=== PATIENT | male | born 1940 | race Caucasian/White ===

== ENCOUNTER 2017-06-20 06:06 | Day surgery (SDC) | payer OTHER ==
[2017-06-19 12:04] LABS: Basophils # (auto) 0.1 uL; Basophils % (auto) 0.7 % (0.0-2.0); Eosinophils # (auto) 0.2 uL; Eosinophils % (auto) 2.3 % (0.0-7.0); Hematocrit 39.8 % (41.0-53.0); Hemoglobin 12.8 g/dL (13.5-17.5); Lymphocytes # (auto) 0.9 uL; Lymphocytes % (auto) 11.5 % (10.0-50.0); Mean Corpuscular Hemoglobin 29.5 pg (28.0-32.0); Mean Corpuscular Hgb Conc. 32.2 g/dL (32.0-36.0); Mean Corpuscular Volume 91.4 fL (80.0-100.0); Monocytes # (auto) 0.6 uL; Monocytes % (auto) 7.2 % (0.0-12.0); Neutrophils # (auto) 6.2 uL; Neutrophils % (auto) 78.3 % (37.0-80.0); Nucleated Red Blood Cells % 0.1 %; Platelet Count (auto) 213 10^3/uL (140-450); Red Cell Distribution Width 15.4 % (11.8-14.3); White Blood Cell 7.9 10^3/uL (4.4-10.8)
[2017-06-19 12:14] LABS: Urine Bilirubin Negative (Negative); Urine Blood 1+ /uL (Negative); Urine Color Yellow (Yellow); Urine Glucose Normal (Normal); Urine Ketone Negative (Negative); Urine Mucus FEW (None Seen); Urine Nitrite Negative (Negative); Urine RBC 10 /hpf (0 - 3); Urine Squamous Epithelial Cell FEW /hpf (<5); Urine Urobilinogen Normal (Negative); Urine pH 5.5 (5.0-8.0)
[2017-06-19 12:23] LABS: INR 1.06 (0.9-1.15); Partial Thromboplastin Time 31.9 sec (22.64-33.71); Prothrombin Time 11.6 sec (9.37-12.3)
[2017-06-19 12:52] LABS: BUN/Creatinine Ratio 23.6; Calcium 8.6 mg/dL (8.5-10.1); Potassium 3.9 mmol/L (3.5-5.1)
[~2017-06-20] VITALS: Ht 180.3 cm; Wt 83.9 kg
[~2017-06-20 06:06] MED LIST: AMLO5TAB2 PO; GLIP-115 PO; SITA100T7 PO; TAM04C PO
[2017-06-20] MEDS ORDERED: ceFAZolin 1GM/50ML D5W 50 ML IV ONE (06:30)
[2017-06-20] MEDS ORDERED: LIDOCAINE 2% JELLY 11ml (GLYDO) ONE (07:09)
[2017-06-20] MEDS ORDERED: PROPOFOL 10 MG/ML 20 ML IV ONE (07:36)
[2017-06-20] MEDS ORDERED: fentaNYL CITRATE 100 MCG/2 ML VL ONE (07:53)
[2017-06-20] MEDS ORDERED: METOCLOPRAMIDE HCL 5MG/ml INJ 2ml VIAL ONE (08:11)
[2017-06-20] MEDS ORDERED: ONDANSETRON HCL 4 MG/2 ML VIAL ONE (08:11)
[2017-06-20] MEDS ORDERED: ACCU-CHEK COMFORT CURVE STRIP VI ONE (08:15)
[2017-06-20] MEDS ORDERED: ONDANSETRON HCL 4 MG/2 ML VIAL IV ONE (08:15)
[2017-06-20] MEDS ORDERED: fentaNYL CITRATE 100 MCG/2 ML VL IV PRN (08:15)
[2017-06-20] MEDS ORDERED: HYDROmorphone HCL 2 MG/ML VL IV PRN (08:15)
[2017-06-20] MEDS ORDERED: hydrALAZINE HCL 20 MG/ML VL IV PRN (08:15)
[2017-06-20] MEDS ORDERED: ceFAZolin 1GM VL ONE (08:19)
[2017-06-20] MEDS ORDERED: BELLADONNA ALKAL/OPIUM (16.2/30MG) RECT SUPP PR ONE (08:45)
[2017-06-20 09:30] VITALS: BP 166/5
== END 2017-06-20 09:55 | disposition home or self-care (01) ==
LOC: SUR 06:06
PROVIDERS: ATTEND Urology
DX: N40.1 Benign prostatic hyperplasia with lower urinary tract symptoms (principal); J45.909 Unspecified asthma, uncomplicated; E11.22 Type 2 diabetes mellitus with diabetic chronic kidney disease; I12.9 Hypertensive chronic kidney disease with stage 1 through stage 4 chronic kidney disease, or unspecified chronic kidney disease; N18.2 Chronic kidney disease, stage 2 (mild)
CPT/HCPCS: 36415; 52601; 80048; 81001; 85025; 85610; 85730; 87086; 87088; 87186; 88305; J0690; J2405; J2704; J2765; J3010

== ENCOUNTER 2024-11-02 12:23 | Inpatient (IN) | payer OTHER ==
[~2024-11-02] VITALS: Ht 172.7 cm; Wt 86.0 kg
[~2024-11-02 12:23] MED LIST changes: +AMLO1TAB22 PO; -AMLO5TAB2 PO; -GLIP-115 PO; +GLIP5TAB21 PO; -TAM04C PO; +TAMS-35 PO
[2024-11-02 12:31] VITALS: PULSE 69; RESP 16; O2SAT 98
--- NOTE | 2024-11-02 13:18 | ED.PDOC ---
History of Present Illness HPI Comments 84 y/o M, presents to the ED for CC of abnormal labs. Patient states, that he was seen at his PCP and was relayed to the ED for a further evaluation due to abnormal labs. Patient's labs report BUN at 99 and creatine at 6.06. Patient denies social history. Patient denies any current dysuria, hematuria, fever, chills, or N/V/D. No new symptoms or modifying factors at this time. Chief Complaint: Abnormal LAB's Time Seen by MD: 12:30 Reviewed Notes: Nurses Notes, Medications, Allergies Allergies: Coded Allergies: Pioglitazone (Verified Allergy, Unknown, 06/19/17) Home Meds Reported Medications Glipizide (Glipizide) 5 Mg Tab, 5 MG PO BID for 30 Days, MG 06/19/17 Sitagliptin Phosphate (Januvia) 100 Mg Tab, 1 TAB PO DAILY, #30 TAB 5 Refills 06/19/17 Amlodipine Besylate (Amlodipine Besylate) 5 Mg Tab, 5 MG PO HS for 30 Days, MG 06/19/17 Tamsulosin Hcl (Flomax) 0.4 Mg Cap, 1 CAP PO DAILY, #30 CAP 11 Refills 06/19/17 Information Source: Patient, Friend Mode of Arrival: Ambulatory Severity: Mild Timing: Days Duration: Since onset Prehospital treatment: None Past Medical History PAST MEDICAL HISTORY: Asthma, DM, HTN Surgical History (Other): 2 & 3 left ft digits, cataracts Family History Family History: Family hx of Cancer, Family hx of heart lion Social History Smoker: Non-Smoker Alcohol: Denies ETOH Use Drugs: Denies Drug Use Lives In: Home Constitutional: reports: weakness; denies: chills, diaphoresis, fatigue, fever, malaise, sweats, others EENTM: denies: blurred vision, double vision, ear bleeding, ear discharge, ear drainage, ear pain, ear ringing, eye pain, eye redness, hearing loss, mouth pain, mouth swelling, nasal discharge, nose bleeding, nose congestion, nose pain, photophobia, tearing, throat pain, throat swelling, voice changes, others Respiratory: denies: cough, hemoptysis, orthopnea, SOB at rest, shortness of breath, SOB with excertion, stridor, wheezing, others Cardiovascular: denies: chest pain, dizzy spells, diaphoresis, Dyspnea on exertion, edema, irregular heart beat, left arm pain, lightheadedness, palpitations, PND, syncope, others Gastrointestinal: denies: abdomen distended, abdominal pain, blood streaked bowels, constipated, diarrhea, dysphagia, difficulty swallowing, hematemesis, me jerome, nausea, poor appetite, poor fluid intake, rectal bleeding, rectal pain, vomiting, others Genitourinary: denies: burning, dysuria, flank pain, frequency, hematuria, incontinence, penile discharge, penile sore, pain, testicle pain, testicle swelling, urgency, others Neurological: denies: dizziness, fainting, headache, left sided numbness, left sided weakness, numbness, paresthesia, pre-existing deficit, right sided numbness, right sided weakness, seizure, speech problems, tingling, tremors, weakness, others Musculoskeletal: denies: back pain, gout, joint pain, joint swelling, muscle pain, muscle stiffness, neck pain, others Integumetry: denies: bruises, change in color, change in hair/nails, dryness, laceration, lesions, lumps, rash, wounds, others Allergic/Immunocompromised: denies: Difficulty Healing, Frequent Infections, Hives, Itching, others Hematologic/Lymphatic: denies: anemia, blood clots, easy bleeding, easy bruising, swollen glands, others Endocrine: denies: excessive hunger, excessive sweating, excessive thirst, excessive urination, flushing, intolerance to cold, intolerance to heat, unexplained weight gain, unexplained weight loss, others Psychiatric: denies: anxiety, bipolar disorder, depression, hopeless, panic disorder, schizophrenia, sleepless, suicidal, others All Other Systems: Reviewed and Negative Physical Exam General Appearance: Moderate Distress HEENT: Pale Conjuntivae (L), Pale Conjuntivae (R), Pharynx Normal, TMs Normal Neck: Full Range of Motion, Non-Tender, Normal, Normal Inspection Respiratory: Chest Non-Tender, Lungs Clear, No Accessory Muscle Use, No Respiratory Distress, Normal Breath Sounds Cardiovascular: No Edema, No JVD, No Murmur, No Gallop, Normal Peripheral Pulses, Regular Rate/Rhythm Breast Exam: Deferred Gastrointestinal: No Organomegaly, Non Tender, No Pulsatile Mass, Normal Bowel Sounds, Soft Genitalia: Deferred Pelvic: Deferred Rectal: Deferred Extremities: No calf tenderness, Normal capillary refill, Pedal edema Musculoskeletal : Apperance: Normal Neurologic: Alert, central stores attendant II-XII nml as Tested, No Motor Deficits, Normal Affect, Normal Mood, No Sensory Deficits Cerebellar Function: Normal Reflexes: Normal Skin: Dry, Normal Color, Warm Lymphatic: No Adenopathy Was a procedure done? Was a procedure done?: No Differential Dx Considerations may include: Generalized weakness, electrolyte imbalance, dehydration, acute renal failure X-Ray, Labs, Meds, VS Vital Signs Date Time Temp Pulse Resp B/P (MAP) Pulse Ox O2 Delivery O2 Flow Rate FiO2 11/02/24 12:31 98.6 69 16 125/31 (62) 98 11/02/24 12:31 98.6 69 16 125/31 (62) 98 98.6 11/02/24 12:31 69 16 98 Room Air* 0 21 Lab Test 11/02/24 13:26 Range/Units White Blood Count 8.4 4.4-10.8 10^3/uL Red Blood Count 3.41 L 4.5-5.90 10^6/uL Hemoglobin 10.6 L 13.5-17.5 g/dL Hematocrit 32.8 L 41.0-53.0 % Mean Corpuscular Volume 96.2 80.0-100.0 fL Mean Corpuscular Hemoglobin 31.2 28.0-32.0 pg Mean Corpuscular Hemoglobin Concent 32.4 32.0-36.0 g/dL Red Cell Distribution Width 14.8 H 11.8-14.3 % Platelet Count 211 140-450 10^3/uL Mean Platelet Volume 9.1 6.9-10.8 fL Neutrophils (%) (Auto) 77.1 37.0-80.0 % Lymphocytes (%) (Auto) 11.4 10.0-50.0 % Monocytes (%) (Auto) 6.7 0.0-12.0 % Eosinophils (%) (Auto) 3.7 0.0-7.0 % Basophils (%) (Auto) 1.1 0.0-2.0 % Neutrophils # (Auto) 6.5 1.6-8.6 10 ^3/uL Lymphocytes # (Auto) 1.0 0.4-5.4 10 ^3/uL Monocytes # (Auto) 0.6 0-1.3 10 ^3/uL Eosinophils # (Auto) 0.3 0-0.8 10 ^3/uL Basophils # (Auto) 0.1 0-0.2 10 ^3/uL Nucleated Red Blood Cells 0.0 % Prothrombin Time 11.2 9.3-11.8 sec Prothrombin Time INR 1.06 0.9-1.15 Activated Partial Thromboplast Time 29.0 24.5-34.5 SEC Sodium Level 142 136-145 mmol/L Potassium Level 4.0 3.5-5.1 mmol/L Chloride Level 109 H 98-107 mmol/L Carbon Dioxide Level 23 20-31 mmol/L Anion Gap 10 5-15 Blood Urea Nitrogen 78 H 9-23 mg/dL Creatinine 5.13 H 0.700-1.30 mg/dL Glomerular Filtration Rate Calc 10 >90 mL/min BUN/Creatinine Ratio 15.2 10.0-20.0 Serum Glucose 85 74-106 mg/dL Calcium Level 9.0 8.7-10.4 mg/dL Chest x-ray is negative. The patient's CBC shows anemia with a hemoglobin of 10.6 and hematocrit of 32.8 The chemistry panel shows a BUN of 78 the creatinine of 5.13 The patient was sent to the emergency department's by the quill winder The patient was being admitted to the hospitalist A nephrology consult is being obtained The patient was diagnosis is acute renal failure. Images Reviewed?: Images reviewed and evaluated by me Time of 1ST Reevaluation: 14:39 Reevaluation 1ST: Unchanged Patient Education/Counseling: Diagnosis, Treatment, Prognosis Family Education/Counseling: Diagnosis, Treatment, Prognosis Departure 1 Departure Time of Disposition: 14:47 Impression: Primary Impression: Acute renal failure Qualified Codes: N17.1 - Acute kidney failure with acute cortical necrosis Disposition: ADMITTED INPATIENT Admit to: Tele Condition: Fair Critical Care Note Critical Care Time?: No Stability Stability form required: Yes Unstable for transfer: Telemetry monitoring (Telemetry monitoring required), ED Physician Assesment (Clinical assesment) Heart Score Heart Score: Heart Score Response (Comments) Value History N/A 0 EKG N/A 0 Age N/A 0 Risk Factors N/A 0 Troponin N/A 0 Total 0 I personally scribed for MIGUE BOBBY MD ([email or web address]) on 11/02/24 at 13:18. El ectronically submitted by Beatriz Gonzalez [email or web address]). MIGUE BOBBY MD Nov 02, 2024 13:18
--- NOTE | 2024-11-02 13:28 | DVH ---
CHEST RADIOGRAPH Indication: weakness Technique: Frontal and lateral view of the chest was obtained Comparison: None FINDINGS: Lines and Tubes: None Lungs: Clear Pleura: No effusion. No pneumothorax. Cardiomediastinal contours: Unremarkable Bones: Unremarkable IMPRESSION: No evidence of acute disease.
[2024-11-02 13:45] LABS: Basophils # (auto) 0.1 10 ^3/uL (0-0.2); Basophils % (auto) 1.1 % (0.0-2.0); Eosinophils # (auto) 0.3 10 ^3/uL (0-0.8); Eosinophils % (auto) 3.7 % (0.0-7.0); Hematocrit 32.8 % (41.0-53.0); Hemoglobin 10.6 g/dL (13.5-17.5); Lymphocytes % (auto) 11.4 % (10.0-50.0); Mean Corpuscular Hemoglobin 31.2 pg (28.0-32.0); Mean Corpuscular Hgb Conc. 32.4 g/dL (32.0-36.0); Mean Corpuscular Volume 96.2 fL (80.0-100.0); Monocytes # (auto) 0.6 10 ^3/uL (0-1.3); Monocytes % (auto) 6.7 % (0.0-12.0); Neutrophils # (auto) 6.5 10 ^3/uL (1.6-8.6); Neutrophils % (auto) 77.1 % (37.0-80.0); Platelet Count (auto) 211 10^3/uL (140-450); Red Blood Cells 3.41 10^6/uL (4.5-5.90); Red Cell Distribution Width 14.8 % (11.8-14.3); White Blood Cell 8.4 10^3/uL (4.4-10.8)
[2024-11-02 13:58] LABS: INR 1.06 (0.9-1.15); Prothrombin Time 11.2 sec (9.3-11.8)
[2024-11-02 14:00] LABS: Sodium 142 mmol/L (136-145)
[2024-11-02 14:01] LABS: Anion Gap 10 (5-15); Carbon Dioxide 23 mmol/L (20-31)
[2024-11-02 14:06] LABS: BUN/Creatinine Ratio 15.2 (10.0-20.0); Glucose 85 mg/dL (74-106)
[2024-11-02 14:09] LABS: Blood Urea Nitrogen 78 mg/dL (9-23); Chloride 109 mmol/L (98-107)
--- NOTE | 2024-11-02 15:59 | ECG ---
[facility] Test Date: 2024-11-02 Test Time: 15:57:07 Pat Name: SELVIN NICHOLE Department: ER Room: 0296T Gender: M Doffer: JENN : 1940 Requested By: MIGUE BOBBY Order Number: [id number] Reading MD: Sukhi Sweeney Measurements Intervals [place] Rate: 63 P: 53 MD: 267 QRS: 36 QRSD: 122 T: 85 QT: 515 QTc: 528 Interpretive Statements Sinus rhythm Prolonged MD interval IVCD, consider atypical RBBB Nonspecific T abnormalities, lateral leads Electronically Signed On 11-04-2024 11:57:45 PST by Sukhi Sweeney Please click the below link to view image of tracing.
--- NOTE | 2024-11-02 17:09 | DVHINCON2 ---
Date of service: Nov 02, [address] King Reason for Consultation CKD stage 5 to start HD History of Present Illness Patient is 84 y/o male with PMH of DM, HTN, Anemia, CKD stage 5 and PAD is referred by Dr. Diaz to start HD Past Medical History PAST MEDICAL HISTORY: Asthma, DM, HTN, CKD, PAD Past Surgical History Surgical History (Other): 2 & 3 left ft digits, cataracts Allergies: Coded Allergies: Pioglitazone (Verified Allergy, Unknown, 06/19/17) Home Meds Reported Medications Glipizide (Glipizide) 5 Mg Tab, 5 MG PO BID for 30 Days, MG 06/19/17 Sitagliptin Phosphate (Januvia) 100 Mg Tab, 1 TAB PO DAILY, #30 TAB 5 Refills 06/19/17 Amlodipine Besylate (Amlodipine Besylate) 5 Mg Tab, 5 MG PO HS for 30 Days, MG 06/19/17 Tamsulosin Hcl (Flomax) 0.4 Mg Cap, 1 CAP PO DAILY, #30 CAP 11 Refills 06/19/17 Current Medications Current Medications Medications (Trade) Dose Ordered Sig/Dante Route PRN Reason Start Time Stop Time Status Last Admin Docusate Sodium (Colace Capsule) 100 mg BIDPRN PRN PO FOR CONSTIPATION 11/02/24 20:45 Acetaminophen (Tylenol Tablet) 650 mg Q6HP PRN PO PAIN SCALE 1-3 OR TEMP>100.4 11/02/24 20:45 Acetaminophen/ Hydrocodone Bitart ([place] 5/325MG Tab) 1 tab Q6HPRN PRN PO MODERATE PAIN (4-6 PAIN SCALE) 11/02/24 20:45 Ondansetron HCl (Zofran) 4 mg Q4HP PRN IV NAUSEA / VOMITING 11/02/24 20:45 Nitroglycerin (Ntrostat Sublingual) 0.4 mg Q5MINP PRN SL FOR CHEST PAIN 11/02/24 20:45 Morphine Sulfate 2 mg Q30M PRN IV FOR CHEST PAIN 11/02/24 20:45 Diagnostic Test (Pha) (Accu-Chek Comfort Curve T) 1 strip ACHS 11/02/24 22:00 11/03/24 11:23 DC 11/03/24 07:34 Insulin Human Regular (InsuLIN R) HS SC 11/02/24 22:00 11/03/24 11:24 DC Insulin Human Regular (InsuLIN R) AC SC 11/03/24 07:00 11/03/24 11:24 DC Dextrose 50 ml UD PRN IV Blood Sugar LESS THAN 60 11/02/24 20:45 11/03/24 11:24 DC Amlodipine Besylate (Norvasc Tablet) 5 mg DAILY PO 11/04/24 10:00 Diagnostic Test (Pha) (Accu-Chek Comfort Curve T) 1 strip Q6HR 11/03/24 12:00 Insulin Human Regular (InsuLIN R) Q6HR SC 11/03/24 12:00 11/03/24 11:52 Dextrose 50 ml UD PRN IV Blood Sugar LESS THAN 60 11/03/24 11:15 Review of Systems All 12 item review of systems reviewed with the patient nonsignificant except what is mentioned in the history of present illness H&P Exam Vital Signs/I&O Vital Sign Date Time Temp Pulse Resp B/P (MAP) Pulse Ox O2 Delivery O2 Flow Rate FiO2 11/03/24 11:45 170/56 11/03/24 08:42 98.0 77 16 98 98.0 11/03/24 03:21 Room Air* 0 21 Intake and Output 11/02/24 11/03/24 19:00 07:00 Intake Total 0 ml Balance 0 ml Intake Oral 0 ml Physical Exam Patient is awake alert Lungs clear to auscultation bilaterally Cardiac exam regular rate and rhythm GI soft nontender bowel sounds are present normal Extremities no clubbing cyanosis or edema Neuro nonfocal Labs/Diagnostic Data Labs/Diagnostic Data Laboratory Tests Test 11/03/24 07:00 11/03/24 06:02 11/03/24 01:45 11/02/24 13:26 Range/Units White Blood Count 8.3 8.4 4.4-10.8 10^3/uL Red Blood Count 3.43 L 3.41 L 4.5-5.90 10^6/uL Hemoglobin 10.8 L 10.6 L 13.5-17.5 g/dL Hematocrit 33.1 L 32.8 L 41.0-53.0 % Mean Corpuscular Volume 96.6 96.2 80.0-100.0 fL Mean Corpuscular Hemoglobin 31.6 31.2 28.0-32.0 pg Mean Corpuscular Hemoglobin Concent 32.7 32.4 32.0-36.0 g/dL Red Cell Distribution Width 14.8 H 14.8 H 11.8-14.3 % Platelet Count 201 211 140-450 10^3/uL Mean Platelet Volume 9.3 9.1 6.9-10.8 fL Neutrophils (%) (Auto) 74.9 77.1 37.0-80.0 % Lymphocytes (%) (Auto) 12.2 11.4 10.0-50.0 % Monocytes (%) (Auto) 6.3 6.7 0.0-12.0 % Eosinophils (%) (Auto) 6.0 3.7 0.0-7.0 % Basophils (%) (Auto) 0.6 1.1 0.0-2.0 % Neutrophils # (Auto) 6.2 6.5 1.6-8.6 10 ^3/uL Lymphocytes # (Auto) 1.0 1.0 0.4-5.4 10 ^3/uL Monocytes # (Auto) 0.5 0.6 0-1.3 10 ^3/uL Eosinophils # (Auto) 0.5 0.3 0-0.8 10 ^3/uL Basophils # (Auto) 0 0.1 0-0.2 10 ^3/uL Nucleated Red Blood Cells 0.0 0.0 % Sodium Level 143 142 136-145 mmol/L Potassium Level 3.8 4.0 3.5-5.1 mmol/L Chloride Level 111 H 109 H 98-107 mmol/L Carbon Dioxide Level 20 23 20-31 mmol/L Anion Gap 12 10 5-15 Blood Urea Nitrogen 76 H 78 H 9-23 mg/dL Creatinine 5.36 H 5.13 H 0.700-1.30 mg/dL Glomerular Filtration Rate Calc 10 10 >90 mL/min BUN/Creatinine Ratio 14.2 15.2 10.0-20.0 Serum Glucose 90 85 74-106 mg/dL Calcium Level 9.3 9.0 8.7-10.4 mg/dL POC Glucose 85 184 H 70-106 mg/dl Prothrombin Time 11.2 9.3-11.8 sec Prothrombin Time INR 1.06 0.9-1.15 Activated Partial Thromboplast Time 29.0 24.5-34.5 SEC Phosphorus Level 5.5 H 2.4-5.1 mg/dL Magnesium Level 2.2 1.6-2.6 mg/dL Parathyroid Hormone (Intact) 432.2 H 18.4-80.1 pg/mL Assessment 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 I discussed my plan of care with the patient and primary nurse at the bedside I would like to thank Dr. King for the consult, will follow up Plan discussed with: Patient LUCRETIA CRAMER MD Nov 02, 2024 17:09
[2024-11-02 18:57] LABS: Magnesium 2.2 mg/dL (1.6-2.6)
[2024-11-02 19:00] LABS: Phosphorus 5.5 mg/dL (2.4-5.1)
[2024-11-02] MEDS ORDERED: HYDROcodone-ACET 5/325MG TAB PO PRN (20:45)
[2024-11-02] MEDS ORDERED: NITROGLYCERIN 0.4 MG SL TAB SL PRN (20:45)
[2024-11-02] MEDS ORDERED: DOCUSATE SOD 100 MG CAP PO PRN (20:45)
[2024-11-02] MEDS ORDERED: DEXTROSE (50%) 50ML SYRG IV PRN (20:45)
[2024-11-02] MEDS ORDERED: ONDANSETRON HCL 4 MG/2 ML VIAL IV PRN (20:45)
[2024-11-02] MEDS ORDERED: ACETAMINOPHEN 325 MG TAB PO PRN (20:45)
[2024-11-02] MEDS ORDERED: MORPHINE SULFATE INJ 2 MG/ml SYRG IV PRN (20:45)
[2024-11-02] MEDS: InsuLIN REG 1unit/0.01ml Soln (100units/ml) SC SCH (22:00)
[2024-11-02] MEDS: ACCU-CHEK COMFORT CURVE STRIP VI SCH (22:00)
--- NOTE | 2024-11-03 02:28 | DVHHP2 ---
LEXI IDAZ BLASTING MACHINE OPERATOR 11/03/24 0228: History of Present Illness Reason for Visit: Tunnel catheter placement for HD History of Present Illness 84-year-old male with path medical history of CKD, DM, hypertension, PAT presents After being sent in by his panel monitor for tunnel catheter placement for HD. At this time patient denies fevers, chills, shortness of breath, chest pain, Nausea vomiting. Cardiovascular: HTN Renal/: Chronic renal insuff Endocrine: Diabetes Review of Systems Constitutional: No: Fever, Chills, Sweats, Weakness, Malaise, Other Eyes: No: Pain, Vision change, Conjunctivae inflammation, Eyelid inflammation, Other, Redness ENT: No: Ear pain, Ear discharge, Nose pain, Nose discharge, Nose congestion, Mouth pain, Mouth swelling, Throat pain, Throat swelling, Other Respiratory: No: Cough, Dry, Shortness of breath, SOB with excertion, Wheezing, Hemoptysis, Pleuritic Pain, Sputum, Wheezing, Other Cardiovascular: No: Chest Pain, Palpitations, Orthopnea, Paroxysmal Noc. Dyspnea, Edema, Lt Headedness, Other Gastrointestinal: No: Nausea, Vomiting, Abdominal Pain, Diarrhea, Constipation, Melena, Hematochezia, Other Genitourinary: No Dysuria, No Frequency, No Incontinence, No Hematuria, No Retention, No Other Musculoskeletal: No: other, neck pain, shoulder pain, arm pain, back pain, hand pain, leg pain, foot pain Skin: No: Rash, Lesions, Jaundice, Bruising, Other Neurological: No: Weakness, Numbness, Incoordination, Change in speech, Confusion, Seizures, Other Allergies: Coded Allergies: Pioglitazone (Verified Allergy, Unknown, 06/19/17) Medications Current Medications Medications Dose Ordered Sig/Dante Route Start Time Stop Time Status Last Admin Dose Admin Docusate Sodium 100 mg BIDPRN PRN PO 11/02/24 20:45 Acetaminophen 650 mg Q6HP PRN PO 11/02/24 20:45 Acetaminophen/ Hydrocodone Bitart 1 tab Q6HPRN PRN PO 11/02/24 20:45 Ondansetron HCl 4 mg Q4HP PRN IV 11/02/24 20:45 Nitroglycerin 0.4 mg Q5MINP PRN SL 11/02/24 20:45 Morphine Sulfate 2 mg Q30M PRN IV 11/02/24 20:45 Diagnostic Test (Pha) 1 strip ACHS 11/02/24 22:00 11/02/24 22:00 1 STRIP Insulin Human Regular HS SC 11/02/24 22:00 Insulin Human Regular AC SC 11/03/24 07:00 Dextrose 50 ml UD PRN IV 11/02/24 20:45 Exam Vital Signs Vital Signs Date Time Temp Pulse Resp B/P (MAP) Pulse Ox O2 Delivery O2 Flow Rate FiO2 11/03/24 02:16 18 18 98 Room Air 11/03/24 01:59 144/65 (91) 11/02/24 20:29 97.7 97.7 11/02/24 12:31 0 21 General Appearance: Alert, Oriented X3, Cooperative HEENT: Atraumatic, PERRLA, EOMI Respiratory: Clear to auscultation, Normal air movement Cardiovascular: Regular rate, Normal S1, Normal S2 Abdominal: Normal bowel sounds, Soft, No tenderness Extremities: No clubbing, Normal pulses Skin: No rashes, No breakdown Neuro: Normal speech, Strength at 5/5 X4 ext Psych/Mental Status: Mental status NL, Mood NL Labs/Xrays Labs Test 11/03/24 01:45 11/02/24 13:26 Range/Units POC Glucose 184 H 70-106 mg/dl White Blood Count 8.4 4.4-10.8 10^3/uL Red Blood Count 3.41 L 4.5-5.90 10^6/uL Hemoglobin 10.6 L 13.5-17.5 g/dL Hematocrit 32.8 L 41.0-53.0 % Mean Corpuscular Volume 96.2 80.0-100.0 fL Mean Corpuscular Hemoglobin 31.2 28.0-32.0 pg Mean Corpuscular Hemoglobin Concent 32.4 32.0-36.0 g/dL Red Cell Distribution Width 14.8 H 11.8-14.3 % Platelet Count 211 140-450 10^3/uL Mean Platelet Volume 9.1 6.9-10.8 fL Neutrophils (%) (Auto) 77.1 37.0-80.0 % Lymphocytes (%) (Auto) 11.4 10.0-50.0 % Monocytes (%) (Auto) 6.7 0.0-12.0 % Eosinophils (%) (Auto) 3.7 0.0-7.0 % Basophils (%) (Auto) 1.1 0.0-2.0 % Neutrophils # (Auto) 6.5 1.6-8.6 10 ^3/uL Lymphocytes # (Auto) 1.0 0.4-5.4 10 ^3/uL Monocytes # (Auto) 0.6 0-1.3 10 ^3/uL Eosinophils # (Auto) 0.3 0-0.8 10 ^3/uL Basophils # (Auto) 0.1 0-0.2 10 ^3/uL Nucleated Red Blood Cells 0.0 % Prothrombin Time 11.2 9.3-11.8 sec Prothrombin Time INR 1.06 0.9-1.15 Activated Partial Thromboplast Time 29.0 24.5-34.5 SEC Sodium Level 142 136-145 mmol/L Potassium Level 4.0 3.5-5.1 mmol/L Chloride Level 109 H 98-107 mmol/L Carbon Dioxide Level 23 20-31 mmol/L Anion Gap 10 5-15 Blood Urea Nitrogen 78 H 9-23 mg/dL Creatinine 5.13 H 0.700-1.30 mg/dL Glomerular Filtration Rate Calc 10 >90 mL/min BUN/Creatinine Ratio 15.2 10.0-20.0 Serum Glucose 85 74-106 mg/dL Calcium Level 9.0 8.7-10.4 mg/dL Phosphorus Level 5.5 H 2.4-5.1 mg/dL Magnesium Level 2.2 1.6-2.6 mg/dL Parathyroid Hormone (Intact) 432.2 H 18.4-80.1 pg/mL Assessment/Plan Assessment/Plan Patient was sent in per nephrology for tunnel catheter placement and hemodialysis. ESRD Requiring tunnel catheter replacement And HD Hypertension DM Plan Admit to telemetry Nephrology consult. Tunnel catheter placement for HD per nephrology. As needed antihypertensives for optimal BP management. Continue home medication. Blood glucose check ACHS with regular insulin sliding scale coverage for optimal glycemic management GI ppx protonix / DVT ppx heparin SQ Plan discussed with: Patient My Orders Orders - LEXI DIAZ NP Procedure Category Date Status Time Admit ADMIT 11/02/24 Transmitted 20:44 Code Status CODE 11/02/24 Transmitted 20:44 Vital Signs [facility] 11/02/24 In Process 20:44 Review Orders With [facility] 11/02/24 In Process Adm. 20:44 Encourage Activity As [facility] 11/02/24 In Process Tolerate 20:44 Oxygen By Face Mask RT 11/02/24 Transmitted 20:44 Docusate Sodium PHA 11/02/24 In Process Capsule (Colace 20:45 Acetaminophen Tablet [facility] 11/02/24 In Process (Tylenol Tablet) 20:45 Notify Of Changes [facility] 11/02/24 In Process From Base 20:44 Advance Directive [facility] 11/02/24 In Process 20:44 Basic Metabolic Panel LAB 11/03/24 Logged 05:00 Basic Metabolic Panel LAB 11/04/24 Verified 05:00 Basic Metabolic Panel LAB 11/05/24 Verified 05:00 Basic Metabolic Panel LAB 11/06/24 Verified 05:00 Complete Blood Count LAB 11/03/24 Logged 05:00 Complete Blood Count LAB 11/04/24 Verified 05:00 Complete Blood Count LAB 11/05/24 Verified 05:00 Complete Blood Count LAB 11/06/24 Verified 05:00 Patient Condition ORDERS 11/02/24 Transmitted 20:44 Allergies [facility] 11/02/24 In Process 20:44 Hydrocodone-Acet PHA 11/02/24 In Process 5/325mg Tab ([place] 20:45 Ondansetron Hcl PHA 11/02/24 In Process (Zofran) 20:45 Sequential [facility] 11/02/24 In Process Compression Device Nitroglycerin PHA 11/02/24 In Process Sublingual (Ntrostat 20:45 Morphine Sulfate PHA 11/02/24 In Process Injection 20:45 Stat Ekg For Chest 11/02/24 In Process Pain 20:44 Notify Of Changes [facility] 11/02/24 In Process From Base 20:44 Oyster Culler For [facility] 11/02/24 In Process 24 Hours 20:44 Emergency Dysrhythmia [facility] 11/02/24 In Process Protocol 20:44 Rhythm Strips Once [facility] 11/02/24 In Process Every Shift 20:44 Oxygen By Nasal RT 11/02/24 Transmitted Cannula 20:44 Glucose Blood PHA 11/02/24 In Process (Accu-Chek Comfort 22:00 Insulin R (Human) PHA 11/02/24 In Process (Insulin R) 22:00 Insulin R (Human) PHA 11/03/24 In Process (Insulin R) 07:00 Dextrose 50% Syringe PHA 11/02/24 In Process 20:45 Date of Service: Nov 03, 2024 Billing Provider: HYUN MANZANO MD Common Visit Codes: NOT BILLABLE HYUN MANZANO MD 11/03/24 1358: Review of Systems Allergies: Coded Allergies: Pioglitazone (Verified Allergy, Unknown, 06/19/17) Assessment/Plan Assessment/Plan Patient seen and evaluated by me this afternoon. Patient seen evaluated and admitted by nurse practitioner this morning. I agree with his evaluation, documentation, assessment and care plan as outlined. Plan discussed with: Patient DIAZLEXI SLOAN BLASTING MACHINE OPERATOR Nov 03, 2024 02:28 HYUN MANZANO MD Nov 03, 2024 13:58
[2024-11-03 02:56] VITALS: BP 173/62; PULSE 67; RESP 17; TEMP 98.4; O2SAT 97
[2024-11-03 03:21] VITALS: BP 143/51; PULSE 77; RESP 18; TEMP 97.7; O2SAT 96
[2024-11-03 05:00] VITALS: BP 143/51; PULSE 77; RESP 17; TEMP 98.4; O2SAT 96
[2024-11-03] MEDS: InsuLIN REG 1unit/0.01ml Soln (100units/ml) SC SCH ×2 (07:00→11:52)
[2024-11-03] MEDS ORDERED: SODIUM CHL 0.9% 1000 ML BAG XX ONE (07:00)
[2024-11-03 07:50] LABS: Basophils # (auto) 0 10 ^3/uL (0-0.2); Basophils % (auto) 0.6 % (0.0-2.0); Eosinophils # (auto) 0.5 10 ^3/uL (0-0.8); Hematocrit 33.1 % (41.0-53.0); Hemoglobin 10.8 g/dL (13.5-17.5); Lymphocytes % (auto) 12.2 % (10.0-50.0); Mean Corpuscular Hemoglobin 31.6 pg (28.0-32.0); Mean Corpuscular Hgb Conc. 32.7 g/dL (32.0-36.0); Mean Corpuscular Volume 96.6 fL (80.0-100.0); Monocytes # (auto) 0.5 10 ^3/uL (0-1.3); Monocytes % (auto) 6.3 % (0.0-12.0); Neutrophils # (auto) 6.2 10 ^3/uL (1.6-8.6); Neutrophils % (auto) 74.9 % (37.0-80.0); Platelet Count (auto) 201 10^3/uL (140-450); Red Blood Cells 3.43 10^6/uL (4.5-5.90); Red Cell Distribution Width 14.8 % (11.8-14.3); White Blood Cell 8.3 10^3/uL (4.4-10.8)
[2024-11-03 08:00] VITALS: PULSE 71
[2024-11-03 08:42] VITALS: BP 151/57; PULSE 77; RESP 16; TEMP 98; O2SAT 98
[2024-11-03 09:09] LABS: Anion Gap 12 (5-15); Calcium 9.3 mg/dL (8.7-10.4); Potassium 3.8 mmol/L (3.5-5.1); Sodium 143 mmol/L (136-145)
[2024-11-03 09:11] LABS: Carbon Dioxide 20 mmol/L (20-31); Chloride 111 mmol/L (98-107)
[2024-11-03 09:15] LABS: BUN/Creatinine Ratio 14.2 (10.0-20.0); Glucose 90 mg/dL (74-106)
[2024-11-03 09:16] LABS: Blood Urea Nitrogen 76 mg/dL (9-23)
[2024-11-03] MEDS ORDERED: DEXTROSE (50%) 50ML SYRG IV PRN (11:15)
[2024-11-03] MEDS: amLODIPine BESYLATE 5 MG TAB PO ONE (11:45)
[2024-11-03] MEDS: ACCU-CHEK COMFORT CURVE STRIP VI SCH (12:00)
--- NOTE | 2024-11-03 12:45 | DVHPN2 ---
Progress Note Date Seen: Nov 03, 2024 Medical Necessity Reason Pt with a Central, PICC or Fol: No Subjective Patient reports: No new complaints Other Systems: Patient seen and examined by myself today in follow-up Objective vital signs Vital Sign Date Time Temp Pulse Resp B/P (MAP) Pulse Ox O2 Delivery O2 Flow Rate FiO2 11/03/24 11:45 170/56 11/03/24 08:42 98.0 77 16 98 98.0 11/03/24 03:21 Room Air* 0 21 Total Intake and Output 11/02/24 11/02/24 11/03/24 15:00 23:00 07:00 Intake Total 0 ml Balance 0 ml medications Current Medications Medications Dose Ordered Sig/Dante Route Start Time Stop Time Status Last Admin Dose Admin Docusate Sodium 100 mg BIDPRN PRN PO 11/02/24 20:45 Acetaminophen 650 mg Q6HP PRN PO 11/02/24 20:45 Acetaminophen/ Hydrocodone Bitart 1 tab Q6HPRN PRN PO 11/02/24 20:45 Ondansetron HCl 4 mg Q4HP PRN IV 11/02/24 20:45 Nitroglycerin 0.4 mg Q5MINP PRN SL 11/02/24 20:45 Morphine Sulfate 2 mg Q30M PRN IV 11/02/24 20:45 Amlodipine Besylate 5 mg DAILY PO 11/04/24 10:00 Diagnostic Test (Pha) 1 strip Q6HR 11/03/24 12:00 Insulin Human Regular Q6HR SC 11/03/24 12:00 11/03/24 11:52 4 UNITS Dextrose 50 ml UD PRN IV 11/03/24 11:15 Examination: LUNGS:Normal, CVS:Normal, MSK:Normal laboratory and microbiology Laboratory Tests 11/03/24 07:00 Test 11/03/24 07:00 Range/Units Serum Glucose 90 74-106 mg/dL Problem List/Assessment/Plan Problem List/Assessment/Plan 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 HTN PAD Anemia of CKD REC: Radiology consult for tunneled IJ HD catheter HD after catheter Resume home meds Check hep B sAg Social service for outpatient HD chair time Will continue to follow Plan discussed with: Patient My Orders My Orders Orders - LUCRETIA CRAMER MD Procedure Category Date Status Time Urine Sodium LAB 11/02/24 Logged 17:10 Urine LAB 11/02/24 Logged Protein/Creatinine Urine Creatinine LAB 11/02/24 Logged 17:10 Urinalysis LAB 11/02/24 Logged 17:10 Hepatitis C Antibody LAB 11/02/24 In Process 17:10 Hepatitis B Surface LAB 11/02/24 In Process Antigen 17:10 * Sports Cartoonist CONS 11/02/24 Transmitted Consult Hemodialysis Orders ORDERS 11/03/24 Transmitted 07:00 Dialysis Nursing [facility] 11/03/24 In Process Message 07:00 Document Fluid Input [facility] 11/03/24 In Process And Outpu 07:00 Epoetin Rosalino-Epbx PHA 11/03/24 In Process (Retacrit) 21:00 LUCRETIA CRAMER MD Nov 03, 2024 12:45
[2024-11-03 13:00] VITALS: BP 170/56; PULSE 61; RESP 16; TEMP 98; O2SAT 94
--- NOTE | 2024-11-03 13:58 | DVHDS2 ---
Discharge Summary Date of Admission Nov 02, 2024 at 20:44 Date of Discharge: Nov 03, 2024 Labs/Diagnostic Data: Laboratory Results Test 11/03/24 07:00 11/03/24 06:02 11/02/24 13:26 White Blood Count 8.3 10^3/uL (4.4-10.8) Red Blood Count 3.43 10^6/uL (4.5-5.90) Hemoglobin 10.8 g/dL (13.5-17.5) Hematocrit 33.1 % (41.0-53.0) Mean Corpuscular Volume 96.6 fL (80.0-100.0) Mean Corpuscular Hemoglobin 31.6 pg (28.0-32.0) Mean Corpuscular Hemoglobin Concent 32.7 g/dL (32.0-36.0) Red Cell Distribution Width 14.8 % (11.8-14.3) Platelet Count 201 10^3/uL (140-450) Mean Platelet Volume 9.3 fL (6.9-10.8) Neutrophils (%) (Auto) 74.9 % (37.0-80.0) Lymphocytes (%) (Auto) 12.2 % (10.0-50.0) Monocytes (%) (Auto) 6.3 % (0.0-12.0) Eosinophils (%) (Auto) 6.0 % (0.0-7.0) Basophils (%) (Auto) 0.6 % (0.0-2.0) Neutrophils # (Auto) 6.2 10 ^3/uL (1.6-8.6) Lymphocytes # (Auto) 1.0 10 ^3/uL (0.4-5.4) Monocytes # (Auto) 0.5 10 ^3/uL (0-1.3) Eosinophils # (Auto) 0.5 10 ^3/uL (0-0.8) Basophils # (Auto) 0 10 ^3/uL (0-0.2) Nucleated Red Blood Cells 0.0 % Sodium Level 143 mmol/L (136-145) Potassium Level 3.8 mmol/L (3.5-5.1) Chloride Level 111 mmol/L (98-107) Carbon Dioxide Level 20 mmol/L (20-31) Anion Gap 12 (5-15) Blood Urea Nitrogen 76 mg/dL (9-23) Creatinine 5.36 mg/dL (0.700-1.30) Glomerular Filtration Rate Calc 10 mL/min (>90) BUN/Creatinine Ratio 14.2 (10.0-20.0) Serum Glucose 90 mg/dL (74-106) Calcium Level 9.3 mg/dL (8.7-10.4) POC Glucose 85 mg/dl (70-106) Prothrombin Time 11.2 sec (9.3-11.8) Prothrombin Time INR 1.06 (0.9-1.15) Activated Partial Thromboplast Time 29.0 SEC (24.5-34.5) Phosphorus Level 5.5 mg/dL (2.4-5.1) Magnesium Level 2.2 mg/dL (1.6-2.6) Parathyroid Hormone (Intact) 432.2 pg/mL (18.4-80.1) Other Laboratory Tests 11/03/24 07:00 Brief Hx & Hospital Course: 84-year-old male with path medical history of CKD, DM, hypertension, PAT presents After being sent in by his tractor trailer moving van driver for tunnel catheter placement for HD. At this time patient denies fevers, chills, shortness of breath, chest pain, Nausea vomiting. He was admitted overnight and evaluated by tractor trailer moving van driver. Unfortunately labor trainer is fully booked with other procedure and unable to do tunneled catheter while he was in the hospital. Meantime from real point of view he remained stable and asymptomatic. Therefore discussed with the tractor trailer moving van driver felt he can be discharged home and have tunneled dialysis catheter placed out patient in the next 24-48 hours. Subsequently he was advised to follow up at [facility] is dialysis for hemodialysis. Therefore I have talked to the patient regarding dialysis catheter placement and dialysis as outpatient. He has verbalized understanding of this and agreed to have it done outpatient at [facility] with the radiology in the next 24 hours and to have dialysis done has deemed appropriate. I have also discussed with the tractor trailer moving van driver as well as the radiologist who will be placing the dialysis tunneled catheter at [facility]. Patient was clinically stable those being discharged home. Condition at Discharge: Stable Final Diagnosis/Problems List End-stage renal disease needing tunneled dialysis catheter Discharge Disposition: Home Discharge Instruct/Medications Diet: Consistent carbohydrate, Cardiac 2g Na,low cholest Activity: No Restrictions, As Tolerated Follow Up/Referral: Tomorrow 10:00 a.m. at [facility], Radiology Department for a tunneled dialysis catheter placement by Dr.Rahul Claudio Medications: home medications Continued Medications: Amlodipine Besylate (Amlodipine Besylate) 5 Mg Tab 5 MG PO HS for 30 Days, MG Glipizide (Glipizide) 5 Mg Tab 5 MG PO BID for 30 Days, MG Sitagliptin Phosphate (Januvia) 100 Mg Tab 1 TAB PO DAILY, #30 TAB 5 Refills Tamsulosin Hcl (Flomax) 0.4 Mg Cap 1 CAP PO DAILY, #30 CAP 11 Refills Discharge Statement: "Patient was advised to return to the ER or call 911 if any headaches, dizziness, shortness of breath, chest pain, abdominal pain, bleeding, fevers, or worsening of medical condition. Patient was counseled about treatment plan, medications, possible side effects, patientverbalized understanding. All questions were answered to the best of my ability. This discharge took greater then 30 minutes in planning, reviewing documentation, counseling the patient, and discussing with other team members." ASSESSMENT ASSESSMENT Assessment End-stage renal disease needing tunneled dialysis catheter HYUN MANZANO MD Nov 03, 2024 13:58
[2024-11-03] MEDS ORDERED: EPOETIN ALFA-EPBX 10,000 UNIT/1ML VIAL SC ONE (21:00)
[2024-11-04] MEDS ORDERED: amLODIPine BESYLATE 5 MG TAB PO SCH (10:00)
[2024-11-04 10:30] LABS: Hepatitis B Surface Antigen Negative (Negative); Hepatitis C Antibody Negative (Negative)
== END 2024-11-03 16:50 | disposition home or self-care (01) | DRG 682 ==
LOC: ER 12:23 → OVERFLOW 20:44 → WEST WING 23:16 → OVERFLOW 11-03 13:38 → TELE-WESTW 11-03 13:45
PROVIDERS: ADMIT Nurse Practitioner Family; ATTEND Nurse Practitioner Family
PROC: 5A1D70Z Performance of Urinary Filtration, Intermittent, Less than 6 Hours Per Day (ICD-10-PCS; principal; 2024-11-02)
DX: I12.0 Hypertensive chronic kidney disease with stage 5 chronic kidney disease or end stage renal disease (principal); N18.6 End stage renal disease; E11.51 Type 2 diabetes mellitus with diabetic peripheral angiopathy without gangrene; E11.22 Type 2 diabetes mellitus with diabetic chronic kidney disease; D63.1 Anemia in chronic kidney disease; J45.909 Unspecified asthma, uncomplicated; Z99.2 Dependence on renal dialysis; Z88.8 Allergy status to other drugs, medicaments and biological substances; Z79.899 Other long term (current) drug therapy
CPT/HCPCS: 36415; 71046; 80048; 82962; 83735; 83970; 84100; 85025; 85610; 85730; 86803; 87340; 93005; G0378; J1815